=== PATIENT | male | born 2000 | race Caucasian/White ===

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

== ENCOUNTER → 2022-05-14 | Outpatient (CLI) | payer OTHER ==
--- NOTE | 2022-05-14 11:27 | XR ---
EXAMINATION TYPE: XR knee complete bilateral DATE OF EXAM: 05/14/2022 COMPARISON: NONE HISTORY: Pain TECHNIQUE: Three views are submitted. FINDINGS: Joint spaces are preserved. Osseous structures are intact. No acute fracture seen. There appears to be small amount of fluid in the suprapatellar bursa bilaterally. IMPRESSION: 1. No acute fracture or dislocation. Small amount fluid in the suprapatellar bursa bilaterally. Tara elate with MRI as clinically warranted
== END | disposition home or self-care (01) ==
LOC: RADXRYALE 11:04
PROVIDERS: ATTEND Physician Assistant
DX: M25.562 Pain in left knee (principal); M25.561 Pain in right knee

== ENCOUNTER → 2023-11-27 | Outpatient (CLI) | payer BC ==
--- NOTE | 2023-11-27 15:36 | US ---
EXAMINATION TYPE: US scrotum with doppler. Grayscale and color Doppler Duplex imaging performed of bharti greenfield scrotum. DATE OF EXAM: 11/27/2023 COMPARISON: NONE CLINICAL INDICATION: Male, 22 years old with history of R22.9 LOCALIZED SWELLING,MASS OR LUMP; Left m obile testicle lump noticed end of october EXAM MEASUREMENTS: TESTICLES: Right Testicle: 4.2 x 2.2 x 3.1 cm Left Testicle: 4.3 x 2.5 x 2.5 cm EPIDIDYMIS HEAD: Right Epididymis: 0.7 x 1.4 x 1.1 cm Left Epididymis: 0.9 x 0.8 x 1.2 cm Doppler performed to assess for testicular vascularity; good bilateral color flow and waveforms are s een. There is no evidence of testicular torsion. Presence of hydroceles: no Presence of varicoceles: no Calcification mid medial left testicle at patients AOC IMPRESSION: Focal calcification is noted. Otherwise unremarkable study.
== END | disposition home or self-care (01) ==
LOC: RADUSWWP 14:39
PROVIDERS: ATTEND Family Medicine
DX: N50.89 Other specified disorders of the male genital organs (principal); R22.2 Localized swelling, mass and lump, trunk
CPT/HCPCS: 76870; 93975